=== PATIENT | male | born 1970 | race African-American/Black ===

== ENCOUNTER 2016-04-13 16:11 | Emergency (ER) | payer OTHER ==
[~2016-04-13] VITALS: Ht 180.3 cm; Wt 106.8 kg
[2016-04-13 16:15] VITALS: BP 115/76; PULSE 98; RESP 16; O2SAT 98
--- NOTE | 2016-04-13 16:25 | ED.REPORT ---
HPI-General Illness Date of Service Apr 13, 2016 ED Provider: The patient is a 45 year old male with history of diabetes mellitus and sciatica who presents to the emergency department complaining of pain to the left-side of his body that has gradually worsened over the last 2 weeks. The pain started in his foot, moved up his leg and is now in his back. He has also noticed numbness in his fingertips but he recently started a new job and was told this way normal. He denies any know injury or trauma. He has not had similar symptoms in the past. He denies fever, chills, nausea, vomiting, diarrhea, abdominal pain, chest pain, shortness of breath or cough. Nursing Notes Stated Complaint: PAIN IN HANDS, & LEFT SIDE OF BODY Chief Complaint: General Complaint Nursing Notes Reviewed: Yes Allergies: Coded Allergies: Pork (Verified Allergy, Intermediate, SWELLING, 04/13/16) Scheduled PRN Hydrocodone-Acetaminophen 5-325 mg (Hydrocodone-Acetaminophen 5-325 mg) 1 Each Tablet 1 TABLET PO Q6H PRN PRN For Pain Ibuprofen (Ibuprofen) 600 Mg Tablet 600 MG PO QID PRN PRN For Pain General Time Seen by MD: 16:25 Chief Complaint Other (pain to left side of body) Hx Obtained From: Patient Arrived By: Walk-in Sudden in Onset?: No Onset Occurred: More than a week ago... (2 weeks) Symptom Duration: Since onset Location: : Back: Foot left: Leg left Quality: Painful Severity: Current: Moderate Severity: Maximum: Moderate Recent Healthcare: No recent doctor visit, No recent hospitalization Similar Sx Previous: No Past Medical History Past Medical History Diabetes mellitus Sciatica Family History Noncontributory Social History Recently moved to the area Ambulatory Status Independent Review of Systems +pain to the left side of his body Full Review of Systems Constitutional: Denies: Chills, Fever Respiratory: Denies: Non-productive cough, Shortness of breath Cardiovascular: Denies: Chest pain GI: Denies: Abdominal pain, Diarrhea, Nausea, Vomiting Musculoskeletal: Reports: Back pain, Extremity pain Neurologic: Reports: Numbness (in fingertips) Complete sys rev & neg: except as marked. Physical Exam Vital Signs Vital Signs Date Time Temp Pulse Resp B/P Pulse Ox O2 Delivery O2 Flow Rate FiO2 04/13/16 16:15 36.9 98 16 115/76 98 Room Air Initial VS: Reviewed, Vital signs normal Head / Eyes: Atraumatic, Normocephalic, PERRL ENT: Mucous membranes moist, Conjunctiva normal, No scleral icterus Neck: Supple, Non-tender, Full range of motion Respiratory: Breath sounds normal, Clear to auscultation, No respiratory distress Lymphatic: No lymphadenopathy Skin: Warm, Dry, No cyanosis Neurologic: Alert, Oriented, Nonfocal Psychiatric: Mood/affect normal, Behavior normal, Normal thought content General/Constitutional: Awake, Alert, Cooperative Cardiovascular: Regular rhythm, Heart sounds NL Heart Rate / Rhythm: Positive: Tachycardia Wrist / Hand: No deformity All fingertips had altered sensation Ankle / Foot: Neurologic intact, Vascular intact He is tender just distal to the heel along the plantar fascia with some slight swelling, however, no erythema and no warmth. Re-Eval/Medical Decision Med Decision/Clinical Course The patient's pain started to his right heel, there is no sign of diabetic ulcer infection. It is likely that due to the pain is altered his gait which is now caused him to have the other pain that he is having on his left side. The patient also complains of bilateral hand fullness and tingling to all of his fingertips after doing repetitive movements. Given the distribution of his symptoms coupled total syndrome is unlikely. He denies any swelling and there is no sign of infection and no history of trauma to the C-spine or hands. He will be treated symptomatically for now. Source of Hx: Old records Time of Eval: 16:36 Re-Evaluation/Progress Note: Discussed exam findings and plan for discharge. All questions were addressed. Counseled Regarding: Diagnosis, Need for follow-up, When/why to return to ED Discharge & Departure Primary Impression: Plantar fasciitis Disposition: Home Discharge Condition All VS Reviewed: Yes Condition: Stable Patient Instructions: Plantar Fasciitis (ED) Additional Instructions: Thank you for entrusting us with your care today. I believe your pain is related to plantar fascitis. Take the Ibuprofen at least 3 times daily for the next 4-5 days. Make sure to take this medication with food. Use the [place] for pain at night. Try to stay off this foot as much as possible over the next few days. Consider purchasing some heel inserts for extra cushion. Do not walk barefoot for now. It is very important that you followup with a doctor for continued treatment. You may need an injection.We have given you a referral to the residency clinic. Please return to the emergency if you develop increased pain or swelling, fever, chills or any other new or concerning symptoms. Referrals: [facility] Scribe Attestation Portions of this note were transcribed by Stephani Webber. I, Dr. Gee personally performed the history, physical exam and medical decision-making; I reviewed and confirmed the accuracy of the information in the transcribed note. Signed by: Stephanie Hoyos, 04/13/2016 at 1500. Marcelle Gee MD Apr 13, 2016 16:25 Stephani Webber Apr 13, 2016 16:31
[2016-04-13] MEDS ORDERED: IBUP-1827 PO (16:39)
[2016-04-13] MEDS ORDERED: HYDR-4003 PO (16:39)
[2016-04-14] MEDS ORDERED: DXM4T PO (03:27)
== END 2016-04-13 17:56 | disposition home or self-care (01) ==
LOC: SED 16:11
DX: M72.2 Plantar fascial fibromatosis (principal); M79.605 Pain in left leg; M54.9 Dorsalgia, unspecified; R20.0 Anesthesia of skin; E11.9 Type 2 diabetes mellitus without complications; Z91.018 Allergy to other foods

== ENCOUNTER 2016-04-13 22:56 | Emergency (ER) | payer OTHER ==
[~2016-04-13] VITALS: Ht 180.3 cm; Wt 106.8 kg
[~2016-04-13 22:56] MED LIST: HYDR-4003 PO; IBUP-1827 PO
--- NOTE | 2016-04-13 23:02 | ED.REPORT ---
HPI-Extremity Problem Lower Date of Service Apr 13, 2016 ED Provider: Dr. Martinez Pt is a 45 year old male with a hx of DM (for 7 years), sciatica, presenting to the ED complaining of bilateral foot tingling and pain onset 2 weeks ago. The pain radiates from his legs to his lower back. He denies any injury, and states that the pain has been increasingly worsening, and he is almost unable to walk.The pt was seen in the ED earlier today with similar symptoms. Since his earlier visit, he has noticed increased swelling in his right foot. He also describes hand swelling onset at 1830, and reports that he was unable to hold a pen properly due to swelling. Pt reports that he took 8 Ibuprofen pills today. He states that this morning, he was unable to get out of bed because his left leg was so numb. Pt had a nerve block surgery done by pain management for his sciatica 2 years ago. Denies change in bowel or bladder habits, fever, headache , change in speech or thinking abilities. Pt states that he was able to walk normally 2 weeks ago. Nursing Notes Stated Complaint: BILATERAL LEG PAIN Chief Complaint: Extremity Trauma Nursing Notes Reviewed: Yes ([employer] not reconciled) Allergies: Coded Allergies: Pork (Verified Allergy, Intermediate, SWELLING, 04/13/16) Scheduled PRN Hydrocodone-Acetaminophen 5-325 mg (Hydrocodone-Acetaminophen 5-325 mg) 1 Each Tablet 1 TABLET PO Q6H PRN PRN For Pain Ibuprofen (Ibuprofen) 600 Mg Tablet 600 MG PO QID PRN PRN For Pain General Time Seen by MD: 23:01 Chief Complaint Foot injury right, Foot injury left Hx Obtained From: Patient Arrived By: Walk-in Onset Occurred: More than a week ago... (2 weeks) Symptom Duration: Since onset Severity: Current: Severe Severity: Maximum: Severe Recent Healthcare: No recent hospitalization, Recent doctor visit Similar Sx Previous: Yes Past Medical History Past Medical History Notes: Patient seen earlier today responded 04/09/2016, thought to have plantar fasciitis discharged with ibuprofen and hydrocodone Past Medical History Diabetes mellitus Sciatica Past Surgical History Reported nerve block surgery done 2 years ago by pain management for sciatica (she claims a surgery, but describes what sounds like a nerve block, and has no scars on his back) Family History Noncontributory Smoking History Current Every Day Smoker Social History Recently moved to the area. Denies IV drug use. Drug Use: Cocaine Ambulatory Status Independent Review of Systems Constitutional: Denies: Fever Musculoskeletal: Reports: Back pain, Extremity pain, Extremity swelling Neurologic: Reports: Focal weakness, Numbness, Problem walking, Weakness, Denies: Headache, Slurred speech, Vision change Complete sys rev & neg: except as marked. Male: Denies Dysuria, Denies Urinary frequency, Denies Urinary urgency, Denies Urination increased Physical Exam Initial Vital Signs Vital Signs (First) Date Time Temp Pulse Resp B/P Pulse Ox O2 Delivery O2 Flow Rate FiO2 04/13/16 23:04 37.0 87 20 131/82 96 Room Air Initial VS: Reviewed, Unavailable (none on chart ordere) General/Constitutional: Well-developed, Well-nourished Head / Eyes: Atraumatic, Normocephalic, PERRL ENT: Mucous membranes moist, Conjunctiva normal, No scleral icterus Abdomen / GI: Soft, Non-tender Psychiatric: Mood/affect normal, Behavior normal, Normal thought content Ankle / Foot: Neurologic intact, Vascular intact, No edema Complains of anasarca, but does not have any pitting edema, or any visible edema in hands or feet. Does appear to be glove and stocking neuropathy in hands and feet. I suspect diabetic neuropathy. Significant weakness in the left leg. He claims that he can stand, however, he has to use his arms to lift his left leg, so it doesn't look like he can stand for more than a few seconds due to pain. Intact plantar and dorsaflexion of great toe. Right leg and opposite leg raises are negative. General/Constitutional: Awake, Alert, No acute distress, Not toxic appearing Very concerned because he is not able to ambulate. Patient appears mildly uncomfortable. Does not appear to be intoxicated or in withdrawal. Respiratory / Chest: No respiratory distress Mild wheezing, not tachypnic or dyspnic. Neurologic: CN II - XII intact Back: Atraumatic, Inspection NL Additional Notes: No back scars. Upper Extremity / MS: Neurologic intact, Vascular intact I tried to test reflexes but was unable to get any reflex action anywhere. Interpretation & Diagnostics Lab Results Interpretation Test 04/13/16 23:45 Lab Results Interpretation: Labs pending Re-Eval/Medical Decision Med Decision/Clinical Course This is a 45-year-old -[place] male seen earlier today and thought that have plantar fasciitis, who now presents with worsening pain, left leg weakness and difficulty and inability to ambulate. The patient is a wandering and somewhat challenging historian. He reports he moved from [place] where he did have problems with sciatica years ago-but he cannot actually remember with the left leg or right leg is uninvolved which is a bit unusual. He also claims to have had a back surgery, but describes a single injection and has no back scars, so I do not feel is a formal surgery- and indicated never really helped. He then goes on to describe development of what sounds like a diabetic neuropathy with burning tingling and a sense of swelling in a glove and sock distribution of the hands and feet in recent weeks , and he states he feels like his hands and feet are swollen-although he admits he cannot really see any swelling to his hands, and I do not visibly appreciate swelling to either the hands or feet and there is no pitting edema. Results and worsening back pain, and now cannot use his left leg. Reports just gives out, has significant pain, and he cannot walk. He denies bowel or bladder dysfunction. Denies any change of bowel or bladder habits. He denies saddle anesthesia. He does admit to substance abuse claims he did use cocaine days ago, but had only denies any IVDA states "I hate needles". On exam however is notable that the patient cannot lift his left left leg up off the gurney. He is active, he works in a grocery, has been trying to go to work. He was given a prescription for ibuprofen and hydrocodone earlier today, but did not fill the prescription for hydrocodone. He has however overusing ibuprofen and has taken 8x 800 mg tabs today and reports "is not even helping". His cranial nerve exam is normal, his upper extremity exam is normal except for decreased sensation to the hands bilaterally, with decreased pinpoint sensation, although seizure moved to the wrist above sensation is intact-I suspect a diabetic neuropathies the etiology of this type. In terms of sensation, the same is true of his feet with decreased sensation to pinprick up until the level of the ankle, bilaterally at which point sensation is again normal. However on motor exam he cannot even lift his left leg up off the gurney. He has a negative opposite straight leg is able to lift the right leg up off the gurney. He does have intact plantar flexion and dorsiflexion of the toes. I asked him to demonstrate walking and standing and he tells me he can stand and he can walk short distances, and I asked him to demonstrate-and he struggled to get off the gurney, and used his hands to lift his left leg is swelling over the side of the gurney. He states that is new. Then he went ahead and tried to stand, was clear his left leg was not providing strength, and he had to lean against the gurney with most the weight on his right leg. Clinically had to sit back down. He was indeed, unable to walk. Plan attempt to do reflexes, I have she was unable to elicit reflexes anywhere he was symmetric, but I was unable to elicit reflexes at either arm, either leg , and either ankle. There is no asymmetry, but it did not help inform my exam. At this point the patient returns back pain, and focal left leg weakness. His bit of a challenging historian and I think there are several things going on. I do think the patient has developed a diabetic neuropathy involving the hands and feet, and the patient does not understand that. His glucose is elevated over 300 here. And it sounds like it has been generally poorly controlled. He does have a glove and stocking distribution neuropathy evident on exam, and symptoms to match. However this does not explain the left lower extremity weakness and back pain. The patient does have this admission of substance abuse with recent cocaine use , denies IV drug use. At this point given the sudden deterioration is describes as inability ambulate and unable to use the left leg, the concern is the potential for a acute surgical process, although the overall presentation is complex-therefore the plan is an MRI of the lumbar spine. History of drug use, study with and without contrast is being obtained. He is being placed. Blood work is being drawn. Urine tox is being ordered. The patient's being turned over to Dr. Recinos at change of shift pending laboratory and radiographic studies, and reevaluation for final disposition. Source of Hx: Old records Re-Evaluation/Progress : Time of Eval: 23:20 Patient Status: Condition improved Re-Evaluation/Progress Note: Checked the sensation of the feet. Differential Diagnosis: Negative: Arterial occlus/ischemia, Fracture, Hip fracture, Knee effusion, Venous thromboembolism Counseled Regarding: Diagnosis, Lab results, Need for follow-up, When/why to return to ED Discharge & Departure Shift Change Sign-Out Patient Care Transferred: Yes Discussed Complaint(s): Yes Laboratory Evaluation: Ordered, not yet done Imaging Studies: Ordered, not yet done Impression: Primary Impression: Sciatica Laterality: left Qualified Code: M54.32 - Sciatica, left side Additional Impressions: Left leg weakness Diabetic neuropathy Diabetes mellitus type: type 2 Diabetes mellitus complication detail: diabetic polyneuropathy Qualified Code: E11.42 - Type 2 diabetes mellitus with diabetic polyneuropathy Substance abuse Hyperglycemia NSAID overdose Encounter type: initial encounter Injury intent: accidental or unintentional Qualified Code: T39.391A - Poisoning by other nonsteroidal anti- inflammatory drugs [NSAID], accidental (unintentional), initial encounter Disposition: Home Discharge Condition All VS Reviewed: Yes Condition: Improved Referrals: [facility] (PCP) [facility] Care Transferred to: Dr. Recinos Care Transferred at: 00:00 Stephanie Attestation Portions of this note were transcribed by Анна Roa. I, Dr. Martinez personally performed the history, physical exam and medical decision-making; I reviewed and confirmed the accuracy of the information in the transcribed note. Signed by: Stephanie Cho, 04/13/2016 and 0000. copies to: [facility] Pavel Martinez MD Apr 13, 2016 23:02 АННА ROA Apr 13, 2016 23:17
[2016-04-13 23:04] VITALS: BP 131/82; PULSE 87; RESP 20; O2SAT 96
[2016-04-13] MEDS ORDERED: Ondansetron 2 mg/mL 2 mL Inj IVPUSH ONE (23:25)
[2016-04-13] MEDS ORDERED: HYDROmorphone 0.5 mg/0.5 mL iSecure Syringe IVPUSH PRN (23:25)
[2016-04-13 23:52] LABS: BASOPHILS % (AUTO) 0.5 % (0-3); EOSINOPHILS % (AUTO) 1.6 % (0-5); MONOCYTES % (AUTO) 12.1 % (4-12); Mean Corpuscular Hemoglobin 28.8 pg (27.0-35.0); Mean Corpuscular Volume 91.6 fL (81-100); NEUTROPHILS % (AUTO) 64.1 % (40-74); Platelet Count 256 bil/L (150-400)
[2016-04-14] MEDS ORDERED: 0.9% Sodium Chloride 1,000 ML IV ONE (00:25)
[2016-04-14 01:30] VITALS: BP 130/72
[2016-04-14 03:16] VITALS: BP 130/76; PULSE 84; RESP 16; O2SAT 98
[2016-04-14] MEDS ORDERED: Dexamethasone 20 mg/2 mL Oral Solution PO ONE (03:25)
[2016-04-14] MEDS ORDERED: DXM4T PO (03:27)
[2016-04-14 04:33] LABS: APPEARANCE,URINE CLEAR (CLEAR,HAZY); COLOR,URINE YELLOW (YELLOW); OCCULT BLOOD,URINE NEGATIVE (NEGATIVE); PH,URINE 5.5 (5.0-8.0); UROBILINOGEN,URINE NORMAL (NORMAL)
[2016-04-14 06:27] VITALS: BP 146/74; PULSE 78; RESP 14; O2SAT 96
--- NOTE | 2016-04-14 11:12 | DRSVH ---
PROCEDURE: MRI LUMBAR SPINE WITH AND WITHOUT CONTRAST ([id number]) INDICATIONS: Back Pain, LLE weakness pain TECHNIQUE: Noncontrast sagittal T1 spin echo and T2 fast spin echo, sagittal STIR, axial T1 and T2 fast spin ech o through the lumbar spine. In cases with scoliosis, additional coronal T2 fast spin echo may be per formed. After the administration of contrast, sagittal and axial T1 spin echo with fat saturation th rough the lumbar spine. COMPARISON: None. FINDINGS: Image quality: Excellent. Alignment and curvature: There is trace anterolisthesis of L4 on L5. Marrow: Marrow is of normal overall signal. There is minimal reactive endplate change at L4-5. No ac [place] vertebral body compression fractures. No suspicious marrow enhancement. Spinal cord: Conus medullaris terminates at the L1 level. Visualized spinal cord demonstrates pa l signal, without suspicious enhancement. Paraspinous soft tissues: No paravertebral masses or abnormal enhancement. Right renal cysts are pr esent. Discs: Minimal desiccation is present at L4-5. L1-L2: No disc bulge, spinal stenosis or foraminal narrowing. L2-L3: No disc bulge, spinal stenosis or foraminal narrowing. L3-L4: Minimal disc bulge without spinal stenosis. Minimal bilateral foraminal narrowing. L4-L5: Mild disc bulge with minimal spinal stenosis. Minimal bilateral foraminal narrowing, left grea ter than right with mild facet hypertrophy. There is prominent fluid within the facet joints bilatera lly consistent with degenerative inflammatory change. L5-S1: Minimal disc bulge without spinal stenosis or foraminal narrowing. IMPRESSION: 1. Early degenerative changes notable at L4-5 with a mild disc bulge and minimal spinal stenosis. Min imal bilateral foraminal narrowing is present as above. Dictated by: Yani Deleon M.D. on 04/14/2016 at 11:08 Approved by: Yani Deleon M.D. on 04/14/2016 at 11:11
== END 2016-04-14 06:33 | disposition home or self-care (01) ==
LOC: SED 22:56
DX: T39.391A Poisoning by other nonsteroidal anti-inflammatory drugs [NSAID], accidental (unintentional), initial encounter (principal); M54.32 Sciatica, left side; R53.1 Weakness; E11.42 Type 2 diabetes mellitus with diabetic polyneuropathy; E11.65 Type 2 diabetes mellitus with hyperglycemia; X58.XXXA Exposure to other specified factors, initial encounter; Y93.9 Activity, unspecified; Y99.8 Other external cause status; Y92.9 Unspecified place or not applicable; F17.200 Nicotine dependence, unspecified, uncomplicated; F14.10 Cocaine abuse, uncomplicated
CPT/HCPCS: 36415; 72158; 80053; 81000; 83036; 85025; 85651; 86140; 96361; 96374; 96375; 99285; A9585; J1170; J2405; J7030